=== PATIENT | male | born 1975 | race Two or more races ===

== ENCOUNTER 2025-08-07 16:51 | Emergency (ER) | payer MEDICAID, SELFPAY ==
[2025-08-07 16:52] VITALS: BMI 28.1
[2025-08-07 16:58] VITALS: BP 204/116; BP 213/110; PULSE 111; RESP 20; TEMP 36.8; O2SAT 97
--- NOTE | 2025-08-07 17:02 | XR_ITS ---
Examination: CT abdomen and pelvis without contrast. Coronal 3-D reconstructions. Sagittal 2-D reconstructions. Date and time of exam: August 07, 2025, 1731 hours INDICATIONS: Onset abdominal pain today COMPARISON: May 19, 2020 CTDI: vol (mGy): 7.72 DLP: (mGycm): 457 Technique: Axial images of the abdomen have been obtained, 3 mm slice thickness Intravenous contrast material has not been administered. Low dose protocols were performed. One or more of the following dose reduction techniques were used; automated exposure control, adjustment of the mA and/or KV according to patient size, use of iterative reconstruction technique. Findings: Atelectasis in the right lower lobe small low-density areas in the liver most consistent with cysts No biliary tract dilatation Contracted gallbladder Spleen is not enlarged No pancreatic or adrenal mass No renal or ureteral calculi, no hydronephrosis Aorta normal size Normal appendix Colonic diverticulosis, no diverticulitis Rectal wall is not thickened Transverse prostate dimension 4.3 cm Intact urinary bladder Mild cellulitis in the perineum subcutaneous fat in the buttock region greater on the left side, axial image 249 No current perianal abscess Osseous structures are intact IMPRESSION: No renal or ureteral calculi Normal appendix Colonic diverticulosis, no diverticulitis Mild cellulitis in the perineum buttock region, greater on the left side, axial image 249 with no abscess No current perianal abscess
[2025-08-07 17:16] VITALS: BP 213/110; PULSE 111
[2025-08-07 17:21] LABS: Collection Type, Urine Clean Catch; Squamous Epithelial Cell,Urine 0 /hpf (0-5)
[2025-08-07 17:35] LABS: Bilirubin,Urine Negative (Negative); Blood,Urine Negative (Negative); Clarity,Urine Clear (Clear/Hazy); Color,Urine Lt-Yellow (Lt Yel-Yel); Glucose, Urine Negative (Negative); Ketones,Urine Negative (Negative); Leukocyte Esterase,Urine Negative (Negative); Nitrite,Urine Negative (Negative); PH,Urine 7.0 (5.0-7.0); Protein,Urine Negative (Neg - Trace); RBC,Urine 2 /hpf (0-3); Specific Gravity,Urine 1.011 (1.001-1.035); Urobilinogen,Urine Negative mg/dL (0.0-1.0); WBC,Urine < 1 /hpf (0-5)
[2025-08-07 17:36] LABS: Basophils # (Auto) 0.1 Thou/mm3 (0.0-0.2); Basophils % (Auto) 1 % (0-2.5); Eosinophils # (Auto) 0.3 Thou/mm3 (0.0-0.5); Eosinophils % (Auto) 3 % (0-10); Hematocrit 48.9 % (41.0-53.0); Hemoglobin 16.8 g/dL (13.5-16.0); Immature Granulocytes Auto 0.04 Thou/mm3 (0.00-0.00); Lymphocytes # (Auto) 3.9 Thou/mm3 (1.0-4.8); Lymphocytes % (Auto) 38 % (10-50); Mean Corpuscular HGB Conc 34.4 g/dl (31.0-37.0); Mean Corpuscular Hemoglobin 34.7 pg (25.0-35.0); Mean Corpuscular Volume 101 fL (80-100); Monocytes # (Auto) 0.8 Thou/mm3 (0.0-0.8); Monocytes % (Auto) 8 % (0-12); Neutrophils # (Auto) 5.1 Thou/mm3 (1.8-7.7); Neutrophils % (Auto) 49 % (37-80); Nucleated Red Blood Cell # 0.00 Thou/mm3 (0.00-0.00); Nucleated Red Blood Cell % 0 /100 WBC (0); Platelet Count 248 Thou/mm3 (140-440); RDW Standard Deviation 46.8 fL (35.1-43.9); Red Blood Count 4.84 Miln/mm3 (4.50-5.90); White Blood Count 10.3 Thou/mm3 (3.8-10.6)
[2025-08-07 17:50] LABS: Alanine Aminotransferase 720 U/L (10-49); Albumin, Serum 4.8 gm/dL (3.5-5.0); Albumin/Globulin Ratio 1.5 (1.2-2.2); Alkaline Phosphatase 150 U/L (46-116); Anion Gap 10 (7-16); Aspartate Amino Transferase 450 U/L (0-34); BUN/Creatinine Ratio 10 Ratio (12-20); Bilirubin,Total 0.3 mg/dL (0.3-1.2); Blood Urea Nitrogen 6 mg/dL (9-23); Calcium 9.9 mg/dL (8.3-10.6); Calcium (Corrected) 9.9 mg/dL (8.5-10.1); Carbon Dioxide 25.5 mMol/L (20.0-31.0); Chloride 103 mMol/L (98-107); Creatinine (Component) 0.6 mg/dL (0.6-1.3); Estimated Creatinine Clearance 139.0 mL/min (>60); Globulin 3.1 gm/dL (2.3-3.5); Glucose 113 mg/dL (74-106); Lipase 67 U/L (12-53); Osmolality,Calculated 274 (275-295); Potassium 3.6 mMol/L (3.4-5.1); Sodium 138 mMol/L (136-145); Total Protein 7.9 gm/dL (5.7-8.2); Troponin I < 0.020 ng/mL (0.0-0.045); eGFR > 60 See Note
--- NOTE | 2025-08-07 19:34 | PD.EDRME ---
Rapid Medical Screening Exam RME Arrival date/time: 08/07/25 16:51 This is a case of 50-year-old male who came in in the emergency room due to abdominal pain nausea vomiting for 1 week worsening of the symptoms this patient decided to sought consult here in the emergency room patient was seen PCP and was sent here for liver abnormal Chief Complaint: Abdominal Pain Time Seen by Provider: 08/07/25 16:54 Vital signs: Vital Signs Temperature 98.2 F 08/07/25 16:58 Pulse Rate 111 H 08/07/25 16:58 Respiratory Rate 20 08/07/25 16:58 Blood Pressure 213/110 H 08/07/25 16:58 Pulse Oximetry (%) 97 08/07/25 16:58 Oxygen Delivery Method Room Air 08/07/25 16:58 Exam: Moderate tenderness in the left upper quadrant and left lower quadrant no guarding no rebound no rigidity Clinical Impression: Abdominal pain
--- NOTE | 2025-08-07 20:20 | PD.EDABDPN ---
ED Abdominal Pain RME/HPI General Chief Complaint: Abdominal Pain Stated complaint: LEFT SIDE ABD PAIN Time seen by provider: 08/07/25 16:54 Arrival date/time: 08/07/25 16:51 RME / HPI RME / HPI narrative: 08/07/25 16:51 This is a case of 50-year-old male who came in in the emergency room due to abdominal pain nausea vomiting for 1 week worsening of the symptoms this patient decided to sought consult here in the emergency room patient was seen PCP and was sent here for liver abnormal Dr. Reyes?s Main ED Evaluation: 50yo male with a history of HTN presents to the ED for a chief complaint of left lower rib pain for the last few days. Denies any N/V, cough, fever, chills, or any other associated symptoms. Patient notes he drinks alcohol with his last drink being 3 days ago. NKA. Related Data Home Medications ?Medication ?Instructions ?Recorded ?Confirmed Unknown Cholesterol Med 1 tab PO DAILY 05/21/19 05/19/20 fenofibrate nanocrystallized 145 145 mg PO QDAY 05/21/19 05/19/20 mg tablet Previous Rx's ?Medication ?Instructions ?Recorded sulfamethoxazole 800 1 tab PO BID #14 tabs 05/22/20 mg-trimethoprim 160 mg tablet (Bactrim DS) lisinopril 10 mg tablet 10 mg PO QDAY #30 tabs 07/18/22 albuterol sulfate 90 mcg/actuation 1 puff inhalation QID #8.5 grams 01/03/23 aerosol inhaler ibuprofen 600 mg tablet 600 mg PO Q6H #30 tabs 04/29/23 pantoprazole 40 mg tablet,delayed 40 mg PO QDAY #30 tabs 06/27/23 release (Protonix) famotidine 20 mg tablet (Pepcid) 20 mg PO QDAY PRN pain #30 tabs 11/03/23 amlodipine 10 mg tablet 10 mg PO QDAY #30 tabs 08/07/25 naproxen 500 mg tablet (Naprosyn) 500 mg PO BID PRN pain #20 tabs 08/07/25 Allergies Allergy/AdvReac Type Severity Reaction Status Date / Time No Known Allergies Allergy Verified 08/07/25 16:54 Review of Systems Review of Systems Systems Reviewed: All systems reviewed, normal except as documented Past Medical History Past Medical History NEUROLOGIC: Negative Seizures CARDIAC: Positive Hypercholesterolemia and Hypertension; Negative Cardiac Disorders or Congestive Heart Failure RESPIRATORY: Negative Chronic Obstructive Pulmonary Disease (COPD) or Asthma GENITOURINARY: Negative Renal Disease ENDOCRINE: Negative Diabetes Mellitus Type 1 or Diabetes Mellitus Type 2 HEMATOLOGIC: Negative Sickle Cell Disease OTHER HISTORY: Negative Blood Transfusions, Blood Transfusion Reaction or Anesthesia Reactions Social History SMOKING STATUS: Never smoker SUBSTANCE USE: does not use ED Exam Narrative Physical exam: Generally patient is alert in no obvious distress, heart regular rate and rhythm, lungs clear to auscultation equal bilaterally, chest shows patient have reproducible left lateral lower rib chest tenderness to palpation without crepitance or subcu air or overlying rash, heart regular rate and rhythm, abdomen soft bowel sounds present nondistended and nontender, skin showed no evidence of rash and because what was mentioned on the CAT scan the patient's perennial area was examined showing no evidence of cellulitis or abscess. Course Quality Measures none Orders Category Date Time Status EKG (ED ONLY) *Do not use* NOW Care 08/07/25 17:[address] abdomen pelvis wo con Stat Exams 08/07/25 17:02 Completed EKG (ED Only) Stat Exams 08/07/25 17:02 Ordered CBC Stat Lab 08/07/25 17:10 Completed Comprehensive Metabolic Panel Stat Lab 08/07/25 17:10 Completed Hepatitis Acute Panel Stat Lab 08/07/25 17:10 Received Lipase Stat Lab 08/07/25 17:10 Completed Troponin I Stat Lab 08/07/25 17:10 Completed Urinalysis Stat Lab 08/07/25 17:16 Completed Ketorolac Inj [Toradol Inj] Med 08/07/25 20:35 Discontinued 60 mg IM X1 ONE cloNIDine HCL [Catapres] Med 08/07/25 17:02 Discontinued 0.2 mg PO X1 ONE Vital Signs Vital signs: Vital Signs Temperature 98.2 F 08/07/25 16:58 Pulse Rate 111 H 08/07/25 16:58 Respiratory Rate 20 08/07/25 16:58 Blood Pressure 213/110 H 08/07/25 16:58 Pulse Oximetry (%) 97 08/07/25 16:58 Oxygen Delivery Method Room Air 08/07/25 16:58 Abdominal Pain MDM MDM Narrative MDM Narrative:: Scribe Attestation: 08/07/25 - I, Domonique Bryce, am scribing for and in the presence of Dr. Reyes. Patient's AST and ALT are elevated. Hepatitis panel was added on. Patient does drink alcohol on a regular basis. Total bilirubin is not elevated. CT scan done the abdomen pelvis with IV contrast showed no evidence of acute disease process. The gallbladder was contracted. No inflammatory change. Patient has no tenderness to the right upper quadrant so I doubt cholecystitis. Patient's pain is to the left lower chest wall. Patient does have a history of hypertension. He is hypertensive here in the emergency room. Patient was given Toradol 60 mg IM. He will be discharged in stable condition to take all of his medications as prescribed. Naprosyn as prescribed. Follow-up with his doctor. Return to ER as needed or if condition worsens. I will give the patient a prescription for amlodipine to take for his hypertension. Patient data External records reviewed:: [facility] previous records (Per chart review, patient was seen here on 11/04/23 for GERD.) Clinical information provided by:: patient Social determinants that could affect healthcare access:: none Patient has the following chronic illnesses:: HTN, HLD How is presenting disease/condition affected by chronic disease/condition?: uneffected by Evaluation data The following diagnostics were reviewed and interpreted by me:: lab results, radiology exam(s) and EKG tracing(s) Lab and/or radiology exams considered but not ordered:: none Interpretation Summary: [facility] Report Signed Patient: LACIE WARREN Record#: [id number] Birthdate: 1975 Age/Sex: 50 / M Location: [facility] Attending Dr: Ordering Physician: Angy Jones Date of Service: 08/07/25 Procedure(s): CT abdomen pelvis wo con Accession Number(s): [id number] cc: Alexandre Mcfarland MD; NO PRIMARY/FAMILY,PHYSICIAN; Angy Jones~ Examination: CT abdomen and pelvis without contrast. Coronal 3-D reconstructions. Sagittal 2-D reconstructions. Date and time of exam: August 07, 2025, 1731 hours INDICATIONS: Onset abdominal pain today COMPARISON: May 19, 2020 CTDI: vol (mGy): 7.72 DLP: (mGycm): 457 Technique: Axial images of the abdomen have been obtained, 3 mm slice thickness Intravenous contrast material has not been administered. Low dose protocols were performed. One or more of the following dose reduction techniques were used; automated exposure control, adjustment of the mA and/or KV according to patient size, use of iterative reconstruction technique. Findings: Atelectasis in the right lower lobe small low-density areas in the liver most consistent with cysts No biliary tract dilatation Contracted gallbladder Spleen is not enlarged No pancreatic or adrenal mass No renal or ureteral calculi, no hydronephrosis Aorta normal size Normal appendix Colonic diverticulosis, no diverticulitis Rectal wall is not thickened Transverse prostate dimension 4.3 cm Intact urinary bladder Mild cellulitis in the perineum subcutaneous fat in the buttock region greater on the left side, axial image 249 No current perianal abscess Osseous structures are intact IMPRESSION: No renal or ureteral calculi Normal appendix Colonic diverticulosis, no diverticulitis Mild cellulitis in the perineum buttock region, greater on the left side, axial image 249 with no abscess No current perianal abscess Dictated By: Alexandre Mcfarland MD Signed By: <Electronically signed by Alexandre Mcfarland MD in OV> 08/07/25 1824 Medications / Prescriptions Medications or Prescriptions considered but not ordered:: none Medication administrations:: Medication Administration History Discontinued Medications Clonidine (Clonidine Hcl 0.1 Mg Tablet) 0.2 mg PO X1 ONE Stop: 08/07/25 17:03 Last Admin: 08/07/25 17:16 Dose: 0.2 mg Documented By: DAA Ketorolac Tromethamine (Ketorolac Inj 60 Mg/2 Ml Vial) 60 mg IM X1 ONE Stop: 08/07/25 20:36 see above Consultations Consultation(s) initiated? (list below): No Diagnosis Differential diagnosis abdominal pain: other (See MDM.) Most likely diagnosis given after review of the tests above:: see clinical impression below Admission Indicated Admission indicated?: not indicated Admission Request Was there a request for admission?: No Disposition Plan Disposition Plan: Discharge Discharge Attestation Discharge Attestation: The patient and all family members were given an opportunity to ask questions and understood the discharge instructions. Discharge instructions specifically effects, indications for sooner follow up or return to the emergency department, and the expected course of current diagnosis. Patient condition: Stable Discharge Plan Plan Patient Disposition: HOME (Self Care) Prescriptions/Referrals Prescriptions/Med Rec: New amlodipine 10 mg tablet 10 mg PO QDAY Qty: 30 0RF naproxen [Naprosyn] 500 mg tablet 500 mg PO BID PRN (Reason: pain) Qty: 20 0RF No Action fenofibrate nanocrystallized 145 mg Tablet 145 mg PO QDAY Unknown Cholesterol Med 1 tab PO DAILY sulfamethoxazole-trimethoprim [Bactrim DS] 800-160 mg tablet 1 tab PO BID Qty: 14 0RF famotidine [Pepcid] 20 mg tablet 20 mg PO QDAY PRN (Reason: pain ) Qty: 30 0RF lisinopril 10 mg tablet 10 mg PO QDAY Qty: 30 0RF albuterol sulfate 90 mcg/actuation HFA aerosol inhaler 1 puff inhalation QID Qty: 8.5 0RF ibuprofen 600 mg tablet 600 mg PO Q6H Qty: 30 0RF pantoprazole [Protonix] 40 mg tablet,delayed release (DR/EC) 40 mg PO QDAY Qty: 30 0RF Referrals: No Primary/Family,Physician [Primary Care Provider] - In 1 week Problem List Clinical Impression: Chest wall pain, Poorly-controlled hypertension, Abnormal LFTs Patient/Caregiver Discharge Instructions Education Materials: Hypertension Dc, ED Chest Pain, Uncertain Cause Additional Instructions: Take the pain medication as prescribed and also the medication for your blood pressure. Follow-up with your doctor for further treatment and evaluation. Print Language: Czech Stand Alone Forms: [facility]ee Award Info., Patient Portal Info Letter
[2025-08-07 20:28] VITALS: BP 128/78; PULSE 87; RESP 18; TEMP 37; O2SAT 99
[2025-08-07] MEDS: KETOROLAC INJ 60 MG/2 ML VIAL IM (20:59)
[2025-08-07 21:37] LABS: Hepatitis A Antibody IgM Non Reactive (Non React); Hepatitis B Core Antibody IgM Non Reactive (Non React); Hepatitis B Surface Antigen Non Reactive (Non React); Hepatitis C Antibody Non Reactive (Non React)
== END 2025-08-07 21:08 | disposition home or self-care (01) ==
PROVIDERS: Nurse Practitioner Family; Emergency Provider Emergency Medicine
DX: L03.315 Cellulitis of perineum (principal)
CPT/HCPCS: 36415; 74176; 80053; 80074; 81001; 83690; 84484; 85025; 93005; 96372; 99284; J1885; A9270